=== PATIENT | male | born 1970 | race African-American/Black ===

== ENCOUNTER 2019-08-17 22:43 | Inpatient (IN) | payer BC ==
[~2019-08-17] VITALS: Ht 182.9 cm; Wt 77.1 kg
[2019-08-18] VITALS (9 sets, daily range): BP systolic 88–131; BP diastolic 47–75
[2019-08-18 00:13] LABS: BASOPHILS % 0.6 % (0.0-2.0); HEMATOCRIT. 52.6 % (42.0-52.0); HEMOGLOBIN. 18.2 g/dL (14.0-18.0); LYMPHOCYTES % 20.6 % (20.0-50.0); MEAN CORPUSCULAR HEMOGLOBIN 30.5 pg (28.0-32.0); MEAN CORPUSCULAR VOLUME 88.1 fL (80.0-94.0); MONOCYTES % 8.2 % (2.0-8.0); NEUTROPHILS % 69.6 % (40.0-76.0); PLATELET 525 x1000/uL (130-400); RED BLOOD CELL COUNT 5.97 mill/uL (4.7-6.1); RED CELL DISTRIBUTION WIDTH 13.3 % (11.6-14.6)
[2019-08-18 00:19] LABS: CHLORIDE 96 mEq/L (98-107)
[2019-08-18 00:21] LABS: INR 1.1; PROTHROMBIN TIME 11.6 sec (9.6-11.0)
[2019-08-18 00:24] LABS: ETHANOL BLOOD < 10 mg/dL
[2019-08-18 00:26] LABS: LDL CHOLESTEROL 65 mg/dL (5-100)
[2019-08-18] MEDS ORDERED: ATORVASTATIN CALCIUM 40MG TABLET PO ONE (00:30)
[2019-08-18] MEDS ORDERED: ASPIRIN 325MG TABLET PO ONE (00:30)
[2019-08-18 00:34] LABS: CLARITY URINE CLEAR (CLEAR); COLOR URINE YELLOW (YELLOW); KETONES URINE NEGATIVE (NEGATIVE); LEUKOCYTE ESTERASE URINE NEGATIVE (NEGATIVE); NITRITE URINE NEGATIVE (NEGATIVE); OCCULT BLOOD URINE NEGATIVE (NEGATIVE); PROTEIN URINE NEGATIVE (NEGATIVE); SPECIFIC GRAVITY URINE 1.022 (1.005-1.030); UROBILINOGEN URINE 0.2 E.U./dL (0.2-1.0)
[2019-08-18 00:57] LABS: *AMPHETAMINES SCREEN URINE NEGATIVE (NEGATIVE); *BARBITURATES SCREEN URINE NEGATIVE (NEGATIVE); *BENZODIAZEPINES SCREEN URINE NEGATIVE (NEGATIVE); *COCAINE SCREEN URINE NEGATIVE (NEGATIVE)
[2019-08-18 00:58] LABS: CANNABINOID URINE SCREEN NEGATIVE (NEGATIVE); METHADONE URINE SCREEN NEGATIVE (NEGATIVE); OPIATES URINE SCREEN NEGATIVE (NEGATIVE); PHENCYCLIDINE URINE SCREEN NEGATIVE (NEGATIVE)
[2019-08-18] MEDS ORDERED: IOHEXOL-350 100 ML BOTTLE ONE (01:58)
[2019-08-18] MEDS ORDERED: METF-415 PO (05:30)
[2019-08-18] MEDS ORDERED: LISI-604 PO (05:30)
[2019-08-18] MEDS ORDERED: GLIP5TAB12 PO (05:30)
[2019-08-18] MEDS ORDERED: AMLO10TA80 PO (05:30)
[2019-08-18] MEDS ORDERED: SIMV-43 PO (05:30)
[2019-08-18] MEDS ORDERED: GEMF600T5 PO (05:30)
[2019-08-18 10:07] LABS: CREATINE KINASE 17 IU/L (39-308)
[2019-08-18 10:08] LABS: CREATINE KINASE MB FRACTION < 1.0 ng/mL (0.5-3.6)
[2019-08-18] MEDS ORDERED: ACETAMINOPHEN 325MG TABLET PO PRN (10:15)
[2019-08-18] MEDS ORDERED: ONDANSETRON HCL 4MG/2ML INJ IV PRN (10:15)
[2019-08-18] MEDS: ENOXAPARIN 40MG/0.4ML SYR SUBCUT SCH (13:53)
[2019-08-18] MEDS: SODIUM CHLORIDE 0.9% 1,000 ML IV SCH ×2 (13:53→23:35)
[2019-08-19] VITALS (12 sets, daily range): BP systolic 88–117; BP diastolic 46–69
[2019-08-19 06:34] LABS: BASOPHILS % 0.5 % (0.0-2.0); EOSINOPHILS % 1.1 % (0.0-5.0); HEMATOCRIT. 46.4 % (42.0-52.0); HEMOGLOBIN. 15.9 g/dL (14.0-18.0); LYMPHOCYTES % 29.8 % (20.0-50.0); MEAN CORPUSCULAR HEMOGLOBIN 30.1 pg (28.0-32.0); MEAN PLATELET VOLUME 6.2 fl (7.4-10.4); MONOCYTES % 9.7 % (2.0-8.0); NEUTROPHILS % 58.9 % (40.0-76.0); PLATELET 587 x1000/uL (130-400); RED BLOOD CELL COUNT 5.27 mill/uL (4.7-6.1); RED CELL DISTRIBUTION WIDTH 13.4 % (11.6-14.6)
[2019-08-19 06:37] LABS: CHLORIDE 103 mEq/L (98-107)
[2019-08-19] MEDS: CLOPIDOGREL 75MG TABLET PO SCH (08:33)
[2019-08-19] MEDS: ENOXAPARIN 40MG/0.4ML SYR SUBCUT SCH (11:37)
[2019-08-19 16:44] LABS: T4 FREE 1.44 ng/dL (0.76-1.46)
[2019-08-19 16:55] LABS: FOLIC ACID (FOLATE) SERUM 12.8 ng/mL (>5.38)
[2019-08-19] MEDS: SODIUM CHLORIDE 0.9% 1,000 ML IV SCH (18:17)
[2019-08-20] VITALS (8 sets, daily range): BP systolic 92–128; BP diastolic 52–78
[2019-08-20] MEDS: SODIUM CHLORIDE 0.9% 1,000 ML IV SCH (02:15)
[2019-08-20 06:40] LABS: BASOPHILS % 0.6 % (0.0-2.0); EOSINOPHILS % 1.3 % (0.0-5.0); HEMOGLOBIN. 14.7 g/dL (14.0-18.0); MEAN CORPUSCULAR HEMOGLOBIN 30.2 pg (28.0-32.0); MEAN CORPUSCULAR VOLUME 88.3 fL (80.0-94.0); MEAN PLATELET VOLUME 6.2 fl (7.4-10.4); MONOCYTES % 9.7 % (2.0-8.0); NEUTROPHILS % 58.4 % (40.0-76.0); PLATELET 530 x1000/uL (130-400); RED BLOOD CELL COUNT 4.87 mill/uL (4.7-6.1)
[2019-08-20 06:45] LABS: CHLORIDE 108 mEq/L (98-107)
[2019-08-20] MEDS: ENOXAPARIN 40MG/0.4ML SYR SUBCUT SCH (09:10)
[2019-08-20] MEDS: CLOPIDOGREL 75MG TABLET PO SCH (09:11)
[2019-08-20 11:25] LABS: TOTAL IRON BINDING CAPACITY 351 ug/dL (250-450)
[2019-08-20] MEDS ORDERED: APIX5TAB MT (11:32)
== END 2019-08-20 15:10 | disposition home or self-care (01) | DRG 64 ==
LOC: ER 22:43 → 5EST 08-18 02:03 → EDBEDREQ 08-18 02:04 → EDBEDREQTM 08-18 02:04 → EDBEDREQDT 08-18 02:04 → ENRESERV 08-18 04:04
PROVIDERS: ADMIT Internal Medicine Nephrology; ATTEND Internal Medicine Nephrology
DX: I63.81 Other cerebral infarction due to occlusion or stenosis of small artery (principal); N17.0 Acute kidney failure with tubular necrosis; G81.91 Hemiplegia, unspecified affecting right dominant side; E87.1 Hypo-osmolality and hyponatremia; E78.5 Hyperlipidemia, unspecified; E78.00 Pure hypercholesterolemia, unspecified; E87.8 Other disorders of electrolyte and fluid balance, not elsewhere classified; N18.9 Chronic kidney disease, unspecified; E11.22 Type 2 diabetes mellitus with diabetic chronic kidney disease; I12.9 Hypertensive chronic kidney disease with stage 1 through stage 4 chronic kidney disease, or unspecified chronic kidney disease; F12.90 Cannabis use, unspecified, uncomplicated; I65.22 Occlusion and stenosis of left carotid artery; I65.21 Occlusion and stenosis of right carotid artery; F17.210 Nicotine dependence, cigarettes, uncomplicated; R47.1 Dysarthria and anarthria; R47.01 Aphasia; Z53.9 Procedure and treatment not carried out, unspecified reason; Z79.899 Other long term (current) drug therapy; Z79.84 Long term (current) use of oral hypoglycemic drugs; Z71.6 Tobacco abuse counseling
CPT/HCPCS: 36415; 70496; 70498; 70551; 71045; 80048; 80053; 80061; 80305; 80320; 81003; 81400; 81403; 81407; 81479; 82550; 82553; 82607; 82746; 82962; 83036; 83540; 83550; 83721; 84439; 84443; 84481; 84484; 85025; 85044; 85300; 85303; 85306; 85613; 85732; 86147; 92523; 92610; 93005; 93306; 97162; 97166; 99291; J1650; J7030; Q9967; G0480

== ENCOUNTER 2019-12-08 03:11 | Emergency (ER) | payer BC ==
[~2019-12-08] VITALS: Ht 188 cm; Wt 82.0 kg
[~2019-12-08 03:11] MED LIST: AMLO10TA80 PO; APIX5TAB MT; GEMF600T5 PO; GLIP5TAB12 PO; LISI-604 PO; METF-415 PO; SIMV-43 PO
[2019-12-08 03:19] VITALS: BP 180/80
== END 2019-12-08 07:53 | disposition left against medical advice (07) ==
LOC: ER 03:11
DX: R10.9 Unspecified abdominal pain (principal); Z53.21 Procedure and treatment not carried out due to patient leaving prior to being seen by health care provider